=== PATIENT | male | born 1965 | race Caucasian/White ===

== ENCOUNTER 2022-04-03 17:01 | Observation (INO) | payer OTHER ==
[~2022-04-03] VITALS: Ht 193 cm; Wt 77.1 kg
[~2022-04-03 17:01] MED LIST: ANTIDEPRESSANT; CEPH500 PO; INSULANI SC; METF500; ONDA8ODT MM; SILD50TA; SULTRIDS PO
[2022-04-03 17:57] LABS: BASOPHILS PERCENT AUTO 0 % (0-2); EOSINOPHILS ABSOLUTE AUTO 0.02 K/mm3 (0.00-0.68); EOSINOPHILS PERCENT AUTO 1 % (0-6); Hematocrit 34.7 % (37.0-53.0); Hemoglobin 11.6 g/dL (13.5-17.5); IMMATURE GRAN ABSOLUTE AUTO 0.01 K/mm3 (0.00-0.10); IMMATURE GRAN PERCENT AUTO 0 % (0-1); LYMPHOCYTES PERCENT AUTO 7 % (21-46); MONOCYTES ABSOLUTE AUTO 0.58 K/mm3 (0.16-1.47); MONOCYTES PERCENT AUTO 14 % (4-13); Mean Corpuscular HGB 28.2 pg (26.0-34.0); Mean Corpuscular HGB Conc 33.4 g/dL (31.5-36.5); Mean Corpuscular Volume 84 fL (80-100); Mean Platelet Volume 11.1 fL (9.1-12.4); NEUTROPHILS ABSOLUTE AUTO 3.18 K/mm3 (1.96-9.15); NEUTROPHILS PERCENT AUTO 78 % (41-73); Platelet Count 180 K/mm3 (150-400); RDW Coefficient Variation 14.1 % (11.7-14.2); RDW Standard Deviation 43.6 fL (35.1-46.3); Red Blood Cell Count 4.11 M/mm3 (4.30-5.90); White Blood Cell Count 4.09 K/mm3 (4.00-11.30)
[2022-04-03 18:21] LABS: Albumin, Blood 3.5 g/dL (3.4-5.0); Albumin/Globulin Ratio 1.1 (0.8-1.8); Bilirubin, Total 0.4 mg/dL (0.1-1.0); Bun/Creatinine Ratio 23.6 (12.0-20.0); Calcium, Blood 8.4 mg/dL (8.5-10.1); Creatinine, Blood 0.76 mg/dL (0.60-1.20); Globulin, Blood 3.1 g/dL (2.2-4.0); Potassium, Blood 3.8 mmol/L (3.5-5.5); Total Protein, Blood 6.6 g/dL (6.4-8.2)
[2022-04-03 21:17] LABS: CHOL/HDL RATIO 2.9; Cholesterol 125 mg/dL (50-200); HDL Cholesterol 43 mg/dL (>39); LDL/HDL RATIO 1.3; Low Density Lipoprotein Chol 57 mg/dL (0-110); Triglycerides 127 mg/dL (30-160); Very Low Density Lipoprot Chol 25 mg/dL (6-32)
[2022-04-03] MEDS ORDERED: NOVOLOG FL100 UNIT/3 SC (22:49)
[2022-04-03] MEDS ORDERED: GABA300 PO (22:51)
[2022-04-03] MEDS ORDERED: MELATONIN5 M1 PO (22:52)
[2022-04-04 06:02] LABS: Hematocrit 35.2 % (37.0-53.0); Hemoglobin 11.8 g/dL (13.5-17.5)
[2022-04-04 06:17] LABS: Bun/Creatinine Ratio 31.4 (12.0-20.0); Calcium, Blood 8.4 mg/dL (8.5-10.1); Creatinine, Blood 0.7 mg/dL (0.60-1.20); Potassium, Blood 4.2 mmol/L (3.5-5.5)
--- NOTE | 2022-04-04 06:21 | NUR ---
SHIFT SUMMARY: PT IS ALERT AND ORIENTED. PT IS CALM AND COOPERATIVE WITH CARE. PT CALLS APPROPRIATELY. PT REPORTS CHRONIC PAIN IN HIS L. FOOT, MEDICATING PER EMAR. PT REPORTS SOB UPON EXERTION, SATS > 90% ON ROOM AIR. PT DENIES NAUSEA AND VOMITING. NO ACUTE CHANGES OR COMPLICATIONS OVERNIGHT. BED IN LOW POSITION, CALL LIGHT WITHIN REACH. WILL REPORT TO DAY NURSE.
--- NOTE | 2022-04-04 16:45 | NUR ---
DAYSHIFT SUMMARY Morning CBG 392, SSI given, notified MD, CBGs continued to be high all shift. This afternoon patient reported chest pain, nausea, and stated that his right arm felt funny. Called MD, new orders for telemetry, NSR. Temperature 99 this morning, and 100.6 this afternoon, patient already recevied scheduled tylenol. Patient reporting nausea, no vomiting. IV Compazine and Scopalimine patch given for nausea.
--- NOTE | 2022-04-05 07:27 | NUR ---
MULTI TOWNSHIP ASSESSOR SUMMARY Patient slept well after receiving diphenhydramine at HS. 1st dose Remdesvir received. Minimal complaints of pain with exception of Left Foot (chronic) pain which resolved with Tylenol. Patient was quite hungry. He requested 1/2 sandwiches each time we entered the room. Johnson stated he felt like he hadn't eaten in a long time and didn't understand why he was so hungry. CBG at HS was 352. increased dose of Lantus and Novolog were given as ordered.
[2022-04-05] MEDS ORDERED: ATORVASTATIN CA80 M1 PO (13:14)
[2022-04-05] MEDS ORDERED: Aspir 8181 MG PO (13:14)
[2022-04-05] MEDS ORDERED: LISI5 PO (13:15)
[2022-04-05] MEDS ORDERED: INSULANI (13:15)
[2022-04-05] MEDS ORDERED: GABA300 PO (13:15)
[2022-04-05] MEDS ORDERED: METO25 PO (13:16)
[2022-04-05] MEDS ORDERED: RANO500T PO (13:16)
--- NOTE | 2022-04-05 15:17 | NUR ---
No acute changes to patient status, ECHO resulted MD reviewed and placed discharge orders. Vitals stable, afebrile. No cardiac s/sx, patient reports feeling sick from COVID, provided education on COVID isolation and managing symptoms. Removed IV from right forearm. Patient left unit at 1430.
== END 2022-04-05 14:25 | disposition home or self-care (01) ==
LOC: ER 17:01 → MEDS 17:03 → ER 21:45 → MEDS 21:45
PROVIDERS: Emergency Medicine; Family Medicine; ADMIT Internal Medicine
DX: I25.110 Atherosclerotic heart disease of native coronary artery with unstable angina pectoris (principal); U07.1 COVID-19; E11.65 Type 2 diabetes mellitus with hyperglycemia; M79.672 Pain in left foot; R50.9 Fever, unspecified; R06.00 Dyspnea, unspecified; I50.22 Chronic systolic (congestive) heart failure; Z86.73 Personal history of transient ischemic attack (TIA), and cerebral infarction without residual deficits; Z79.4 Long term (current) use of insulin; Z79.899 Other long term (current) drug therapy
CPT/HCPCS: 36415; 71045; 80048; 80053; 80061; 82947; 83036; 83880; 84484; 85014; 85018; 85025; 93005; 93010; 96372; 96374; 96375; 99285-25; A9270; C8929; G0378; J0248; J0780; J1650; J1815; J7040; J7050; Q9957

== ENCOUNTER → 2022-08-11 | Outpatient (CLI) | payer OTHER ==
[~2022-08-11] MED LIST changes: +ASPI81CH PO; +ATOR80 PO; +ATORVASTATIN CA80 M1 PO; +Aspir 8181 MG PO; +GABA300 PO; +INSULANI; +INSULIN LI100 UNIT/6 SQ; +LISI5 PO; +MELATONIN5 M1 PO; +METO25 PO; +NOVOLOG FL100 UNIT/3 SC; +PREG100 PO; +RANO500T PO; +STEGLATRO5 MG PO; +TICA90TA PO; +TOPROL XL25 MG PO; +TRAM50 PO
[2022-08-11 09:55] LABS: BASOPHILS ABSOLUTE AUTO 0.03 K/mm3 (0.00-0.23); BASOPHILS PERCENT AUTO 1 % (0-2); EOSINOPHILS ABSOLUTE AUTO 0.09 K/mm3 (0.00-0.68); EOSINOPHILS PERCENT AUTO 2 % (0-6); Hematocrit 39.8 % (37.0-53.0); Hemoglobin 12.7 g/dL (13.5-17.5); IMMATURE GRAN ABSOLUTE AUTO 0.01 K/mm3 (0.00-0.10); IMMATURE GRAN PERCENT AUTO 0 % (0-1); LYMPHOCYTES ABSOLUTE AUTO 1.43 K/mm3 (0.84-5.20); LYMPHOCYTES PERCENT AUTO 30 % (21-46); MONOCYTES ABSOLUTE AUTO 0.53 K/mm3 (0.16-1.47); MONOCYTES PERCENT AUTO 11 % (4-13); Mean Corpuscular HGB 28.8 pg (26.0-34.0); Mean Corpuscular HGB Conc 31.9 g/dL (31.5-36.5); Mean Corpuscular Volume 90 fL (80-100); Mean Platelet Volume 10.7 fL (9.1-12.4); NEUTROPHILS ABSOLUTE AUTO 2.74 K/mm3 (1.96-9.15); NEUTROPHILS PERCENT AUTO 57 % (41-73); Platelet Count 247 K/mm3 (150-400); RDW Coefficient Variation 13.1 % (11.7-14.2); RDW Standard Deviation 43.2 fL (35.1-46.3); Red Blood Cell Count 4.41 M/mm3 (4.30-5.90); White Blood Cell Count 4.83 K/mm3 (4.00-11.30)
[2022-08-11 10:03] LABS: Bun/Creatinine Ratio 21.3 (12.0-20.0); Calcium, Blood 8.6 mg/dL (8.5-10.1); Creatinine, Blood 0.75 mg/dL (0.60-1.20); Potassium, Blood 4.3 mmol/L (3.5-5.5)
[2022-08-11 10:05] LABS: Prothrombin Time Results 10.5 Sec (9.7-11.5)
== END | disposition home or self-care (01) ==
LOC: LAB SHORT 07:40 → LAB 07:40
PROVIDERS: Internal Medicine Cardiovascular Disease
DX: I63.9 Cerebral infarction, unspecified (principal)
CPT/HCPCS: 36415; 80048; 85025; 85610

== ENCOUNTER 2022-08-12 05:42 | Day surgery (SDC) | payer OTHER ==
[~2022-08-12 05:42] MED LIST changes: -ASPI81CH PO; -ATOR80 PO; -PREG100 PO; -TICA90TA PO; -TOPROL XL25 MG PO; -TRAM50 PO
[2022-08-12] MEDS ORDERED: ATOR80 PO (06:23)
[2022-08-12] MEDS ORDERED: ASPI81CH PO (06:23)
[2022-08-12] MEDS ORDERED: GABA300 PO (06:23)
[2022-08-12] MEDS ORDERED: TOPROL XL25 MG PO (06:24)
[2022-08-12] MEDS ORDERED: LISI5 PO (06:24)
[2022-08-12] MEDS ORDERED: RANO500T PO (06:25)
[2022-08-12] MEDS ORDERED: PREG100 PO (06:25)
[2022-08-12] MEDS ORDERED: TICA90TA PO (06:25)
[2022-08-12] MEDS ORDERED: TRAM50 PO (06:26)
--- NOTE | 2022-08-12 07:21 | NUR ---
PT IS AWAKE AND VERBALIZING WELL.
--- NOTE | 2022-08-12 07:31 | NUR ---
PT AND VERBALIZED UNDERSTANDING OF WRITTEN AND VERBAL D/C INST. IV REMOVED. PT TAKEN OUT OF THE HRT CENTER VIA W/C.
== END 2022-08-12 23:03 | disposition home or self-care (01) ==
LOC: MHTC 05:42
DX: I63.9 Cerebral infarction, unspecified (principal); I25.10 Atherosclerotic heart disease of native coronary artery without angina pectoris; I11.0 Hypertensive heart disease with heart failure; I50.20 Unspecified systolic (congestive) heart failure; E11.9 Type 2 diabetes mellitus without complications
CPT/HCPCS: 93246; 93312; 93325; A9270; J2704; J7030

== ENCOUNTER 2022-12-23 19:56 | Inpatient (IN) | payer OTHER ==
[~2022-12-23] VITALS: Ht 188 cm; Wt 92.5 kg
[~2022-12-23 19:56] MED LIST changes: +ASPI81CH PO; +ATOR80 PO; +PREG100 PO; +TICA90TA PO; +TOPROL XL25 MG PO; +TRAM50 PO
[2022-12-23 20:08] LABS: BASOPHILS ABSOLUTE AUTO 0.02 K/mm3 (0.00-0.23); BASOPHILS PERCENT AUTO 0 % (0-2); EOSINOPHILS ABSOLUTE AUTO 0.03 K/mm3 (0.00-0.68); EOSINOPHILS PERCENT AUTO 0 % (0-6); Hematocrit 34.7 % (37.0-53.0); Hemoglobin 11.2 g/dL (13.5-17.5); IMMATURE GRAN ABSOLUTE AUTO 0.02 K/mm3 (0.00-0.10); IMMATURE GRAN PERCENT AUTO 0 % (0-1); LYMPHOCYTES ABSOLUTE AUTO 1.18 K/mm3 (0.84-5.20); LYMPHOCYTES PERCENT AUTO 16 % (21-46); MONOCYTES ABSOLUTE AUTO 0.81 K/mm3 (0.16-1.47); MONOCYTES PERCENT AUTO 11 % (4-13); Mean Corpuscular HGB 31.9 pg (26.0-34.0); Mean Corpuscular HGB Conc 32.3 g/dL (31.5-36.5); Mean Corpuscular Volume 99 fL (80-100); Mean Platelet Volume 9.3 fL (9.1-12.4); NEUTROPHILS ABSOLUTE AUTO 5.55 K/mm3 (1.96-9.15); NEUTROPHILS PERCENT AUTO 73 % (41-73); Platelet Count 447 K/mm3 (150-400); RDW Coefficient Variation 14.5 % (11.7-14.2); RDW Standard Deviation 52.8 fL (35.1-46.3); Red Blood Cell Count 3.51 M/mm3 (4.30-5.90); White Blood Cell Count 7.61 K/mm3 (4.00-11.30)
[2022-12-23 20:24] LABS: Alanine Aminotransfer (ALT/SGP 14 U/L (12-78); Albumin, Blood 3.1 g/dL (3.4-5.0); Albumin/Globulin Ratio 0.8 (0.8-1.8); Alk Phos 107 U/L (50-136); Anion Gap 5 mmol/L (6-16); Aspartate Aminotrans (AST/SGOT 11 U/L (12-37); Bilirubin, Total 0.2 mg/dL (0.1-1.0); Blood Urea Nitrogen 16 mg/dL (8-24); Bun/Creatinine Ratio 23.2 (12.0-20.0); CO2, Blood 23 mmol/L (21-32); Calcium, Blood 8.3 mg/dL (8.5-10.1); Chloride, Blood 111 mmol/L (98-108); Creatinine, Blood 0.69 mg/dL (0.60-1.20); Ethanol (Alcohol), Blood, Med <3 mg/dL; Globulin, Blood 3.9 g/dL (2.2-4.0); Glomerular Filtration Rate 108 (60-); Glucose, Blood 59 mg/dL (70-99); Potassium, Blood 3.4 mmol/L (3.5-5.5); Sodium, Blood 139 mmol/L (136-145)
[2022-12-23 21:06] LABS: U Amphetamine Screen Not Detected; U Barbituate Screen Not Detected; U Benzodiazapine Screen Not Detected; U Buprenorphine Screen Not Detected; U Cannabinoids Screen Not Detected; U Cocaine Screen Not Detected; U Methadone Screen Not Detected; U Methamphetamine Screen Not Detected; U Opiates Screen Not Detected; U Oxycodone Screen Not Detected; U Phencyclidine Screen Not Detected; U Propoxyphene Screen Not Detected
[2022-12-23] MEDS ORDERED: SPIRONOLACTONE25 MG PO (21:30)
[2022-12-24 00:05] VITALS: BP 117/80
[2022-12-24 03:03] VITALS: BP 127/86
[2022-12-24 03:53] LABS: BASOPHILS ABSOLUTE AUTO 0.01 K/mm3 (0.00-0.23); BASOPHILS PERCENT AUTO 0 % (0-2); EOSINOPHILS ABSOLUTE AUTO 0.01 K/mm3 (0.00-0.68); EOSINOPHILS PERCENT AUTO 0 % (0-6); Hematocrit 33.5 % (37.0-53.0); Hemoglobin 10.8 g/dL (13.5-17.5); IMMATURE GRAN ABSOLUTE AUTO 0.01 K/mm3 (0.00-0.10); IMMATURE GRAN PERCENT AUTO 0 % (0-1); LYMPHOCYTES ABSOLUTE AUTO 0.78 K/mm3 (0.84-5.20); LYMPHOCYTES PERCENT AUTO 14 % (21-46); MONOCYTES ABSOLUTE AUTO 0.43 K/mm3 (0.16-1.47); MONOCYTES PERCENT AUTO 8 % (4-13); Mean Corpuscular HGB Conc 32.2 g/dL (31.5-36.5); Mean Corpuscular Volume 99 fL (80-100); Mean Platelet Volume 9.6 fL (9.1-12.4); NEUTROPHILS ABSOLUTE AUTO 4.51 K/mm3 (1.96-9.15); NEUTROPHILS PERCENT AUTO 78 % (41-73); Platelet Count 365 K/mm3 (150-400); RDW Coefficient Variation 14.4 % (11.7-14.2); RDW Standard Deviation 52.7 fL (35.1-46.3); Red Blood Cell Count 3.37 M/mm3 (4.30-5.90); White Blood Cell Count 5.75 K/mm3 (4.00-11.30)
[2022-12-24 04:12] LABS: Albumin, Blood 2.7 g/dL (3.4-5.0); Albumin/Globulin Ratio 0.8 (0.8-1.8); Bilirubin, Total 0.2 mg/dL (0.1-1.0); Bun/Creatinine Ratio 24.3 (12.0-20.0); Calcium, Blood 7.9 mg/dL (8.5-10.1); Creatinine, Blood 0.58 mg/dL (0.60-1.20); Globulin, Blood 3.6 g/dL (2.2-4.0); Potassium, Blood 3.8 mmol/L (3.5-5.5); Total Protein, Blood 6.3 g/dL (6.4-8.2)
[2022-12-24 07:00] VITALS: BP 129/85
[2022-12-24 11:21] VITALS: BP 131/76
[2022-12-24 15:25] VITALS: BP 118/84
[2022-12-24 17:05] LABS: Source, Urine Clean Catch
[2022-12-24 17:08] LABS: Appearance, Urine Hazy (Clear); Bilirubin, Urine Neg (Neg); Blood, Urine Neg (Neg); Color, Urine Yellow (P-Yellow); Glucose Qualitative, Urine 4+ (Neg); Ketones, Urine Neg (Neg); Leukocyte Esterase, Urine 1+ (Neg); Nitrite, Urine Pos (Neg); Protein, Urine Neg (Neg); Urobilinogen, Urine NORM (Normal)
[2022-12-24 17:14] LABS: Red Blood Cells, Urine 0-2 /hpf (0-2)
[2022-12-24 17:15] LABS: Bacteria Many /hpf; Squamous Epithelial Cells Not Seen /hpf (Few)
[2022-12-24 20:06] VITALS: BP 120/86
[2022-12-25] VITALS (7 sets, daily range): BP systolic 119–138; BP diastolic 79–97
[2022-12-25 08:47] LABS: Albumin, Blood 3.1 g/dL (3.4-5.0); Anion Gap 2 mmol/L (6-16); Blood Urea Nitrogen 18 mg/dL (8-24); Bun/Creatinine Ratio 25.3 (12.0-20.0); CO2, Blood 29 mmol/L (21-32); Calcium, Blood 8.3 mg/dL (8.5-10.1); Chloride, Blood 106 mmol/L (98-108); Creatinine, Blood 0.71 mg/dL (0.60-1.20); Glomerular Filtration Rate 107 (60-); Glucose, Blood 166 mg/dL (70-99); Magnesium, Blood 2.2 mg/dL (1.6-2.4); Phosphorus, Blood 3.5 mg/dL (2.5-4.9); Sodium, Blood 137 mmol/L (136-145)
[2022-12-26 04:16] VITALS: BP 112/75
[2022-12-26 09:33] VITALS: BP 115/74
[2022-12-26 11:41] VITALS: BP 123/83
[2022-12-26 15:25] VITALS: BP 120/81
[2022-12-26 20:47] VITALS: BP 117/80
[2022-12-26 23:30] LABS: Glucose, Blood 543 mg/dL (70-99)
[2022-12-27 08:03] VITALS: BP 112/75
[2022-12-27 15:16] VITALS: BP 113/84
[2022-12-27 19:44] VITALS: BP 136/85
[2022-12-28 05:27] VITALS: BP 98/65
[2022-12-28 07:25] VITALS: BP 121/83
[2022-12-28 17:36] VITALS: BP 128/86
[2022-12-28 19:49] VITALS: BP 120/85
[2022-12-29 02:39] VITALS: BP 95/62
[2022-12-29 08:18] VITALS: BP 117/78
[2022-12-29 09:00] VITALS: BP 146/79
[2022-12-29 16:25] VITALS: BP 139/90
[2022-12-29 21:27] VITALS: BP 104/74
[2022-12-30 05:42] LABS: Bun/Creatinine Ratio 41.7 (12.0-20.0); Calcium, Blood 9.2 mg/dL (8.5-10.1); Creatinine, Blood 0.62 mg/dL (0.60-1.20); Potassium, Blood 4.3 mmol/L (3.5-5.5)
[2022-12-30 08:08] VITALS: BP 124/88
[2022-12-30 15:39] VITALS: BP 127/87
[2022-12-30 16:47] VITALS: BP 154/94
[2022-12-30 20:04] VITALS: BP 119/86
[2022-12-31 02:52] VITALS: BP 105/77
[2022-12-31 05:03] LABS: BASOPHILS ABSOLUTE AUTO 0.02 K/mm3 (0.00-0.23); BASOPHILS PERCENT AUTO 0 % (0-2); EOSINOPHILS ABSOLUTE AUTO 0.05 K/mm3 (0.00-0.68); EOSINOPHILS PERCENT AUTO 1 % (0-6); Hematocrit 33.9 % (37.0-53.0); Hemoglobin 11.1 g/dL (13.5-17.5); IMMATURE GRAN ABSOLUTE AUTO 0.01 K/mm3 (0.00-0.10); IMMATURE GRAN PERCENT AUTO 0 % (0-1); LYMPHOCYTES ABSOLUTE AUTO 1.49 K/mm3 (0.84-5.20); LYMPHOCYTES PERCENT AUTO 31 % (21-46); MONOCYTES ABSOLUTE AUTO 0.63 K/mm3 (0.16-1.47); MONOCYTES PERCENT AUTO 13 % (4-13); Mean Corpuscular HGB 32.2 pg (26.0-34.0); Mean Corpuscular HGB Conc 32.7 g/dL (31.5-36.5); Mean Corpuscular Volume 98 fL (80-100); Mean Platelet Volume 9.7 fL (9.1-12.4); NEUTROPHILS ABSOLUTE AUTO 2.69 K/mm3 (1.96-9.15); NEUTROPHILS PERCENT AUTO 55 % (41-73); Platelet Count 285 K/mm3 (150-400); RDW Coefficient Variation 13.2 % (11.7-14.2); RDW Standard Deviation 47.7 fL (35.1-46.3); Red Blood Cell Count 3.45 M/mm3 (4.30-5.90); White Blood Cell Count 4.89 K/mm3 (4.00-11.30)
[2022-12-31 05:41] LABS: Calcium, Blood 9.2 mg/dL (8.5-10.1); Creatinine, Blood 0.69 mg/dL (0.60-1.20); Potassium, Blood 4.4 mmol/L (3.5-5.5)
[2022-12-31 07:23] VITALS: BP 132/89
[2022-12-31 15:11] VITALS: BP 119/92
[2022-12-31 20:17] VITALS: BP 110/75
[2023-01-01 03:45] VITALS: BP 90/60
[2023-01-01 05:47] LABS: Calcium, Blood 8.9 mg/dL (8.5-10.1); Creatinine, Blood 0.78 mg/dL (0.60-1.20); Potassium, Blood 4.8 mmol/L (3.5-5.5)
[2023-01-01 07:21] VITALS: BP 114/83
[2023-01-01 15:28] VITALS: BP 125/85
[2023-01-01] MEDS ORDERED: Seroquel Xr50 MG PO (17:17)
[2023-01-01] MEDS ORDERED: ALDACTONE25 MG (17:18)
== END 2023-01-01 17:54 | disposition home or self-care (01) | DRG 637 ==
LOC: ER 19:56 → PCU 19:57 → MEDS 12-25 15:51 → PCU 12-25 15:55 → MEDS 12-26 17:01
PROVIDERS: Emergency Medicine; Family Medicine; Internal Medicine; ADMIT Internal Medicine
DX: E10.649 Type 1 diabetes mellitus with hypoglycemia without coma (principal); G93.41 Metabolic encephalopathy; I50.22 Chronic systolic (congestive) heart failure; T38.3X5A Adverse effect of insulin and oral hypoglycemic [antidiabetic] drugs, initial encounter; M25.561 Pain in right knee; I25.10 Atherosclerotic heart disease of native coronary artery without angina pectoris; Z66 Do not resuscitate; Z51.5 Encounter for palliative care; E10.42 Type 1 diabetes mellitus with diabetic polyneuropathy; I25.5 Ischemic cardiomyopathy; E78.5 Hyperlipidemia, unspecified; G40.909 Epilepsy, unspecified, not intractable, without status epilepticus; I11.0 Hypertensive heart disease with heart failure; M25.461 Effusion, right knee; F01.B0 Vascular dementia, moderate, without behavioral disturbance, psychotic disturbance, mood disturbance, and anxiety; B95.61 Methicillin susceptible Staphylococcus aureus infection as the cause of diseases classified elsewhere; W18.30XA Fall on same level, unspecified, initial encounter; Z91.018 Allergy to other foods; Z79.82 Long term (current) use of aspirin; Z79.02 Long term (current) use of antithrombotics/antiplatelets; Z79.811 Long term (current) use of aromatase inhibitors; Z86.73 Personal history of transient ischemic attack (TIA), and cerebral infarction without residual deficits; Z79.4 Long term (current) use of insulin; Z95.5 Presence of coronary angioplasty implant and graft; Z79.899 Other long term (current) drug therapy; Z79.891 Long term (current) use of opiate analgesic; I25.2 Old myocardial infarction; Z89.422 Acquired absence of other left toe(s); Z98.84 Bariatric surgery status; Z87.891 Personal history of nicotine dependence
CPT/HCPCS: 36415; 51702; 70450; 73562-RT; 80048; 80053; 80069; 81001; 82947; 83735; 85025; 87077; 87086; 87147; 87186; 93005; 93010; 94760; 96361; 96372; 96374-59; 96375-59; 96376; 97129; 97165; 99285-25; A9270; G0378; G0480; J0696; J1650; J1815; J7070; J7131; J7799

== ENCOUNTER 2023-02-23 17:08 | Emergency (ER) | payer OTHER ==
[~2023-02-23] VITALS: Ht 193 cm; Wt 81.7 kg
[~2023-02-23 17:08] MED LIST changes: +ALDACTONE25 MG; +SPIRONOLACTONE25 MG PO; +Seroquel Xr50 MG PO
[2023-02-23 18:50] LABS: Magnesium, Blood 2.3 mg/dL (1.6-2.4)
[2023-02-23 18:51] LABS: Bun/Creatinine Ratio 20.3 (12.0-20.0); Calcium, Blood 8.3 mg/dL (8.5-10.1); Creatinine, Blood 0.64 mg/dL (0.60-1.20); Potassium, Blood 3.8 mmol/L (3.5-5.5)
[2023-02-23 21:09] VITALS: BP 135/93
== END 2023-02-23 21:15 | disposition home or self-care (01) ==
LOC: ER 17:08
PROVIDERS: Student in an Organized Health Care Education/Training Program
DX: E11.649 Type 2 diabetes mellitus with hypoglycemia without coma (principal); E11.43 Type 2 diabetes mellitus with diabetic autonomic (poly)neuropathy; K31.84 Gastroparesis; T38.3X5A Adverse effect of insulin and oral hypoglycemic [antidiabetic] drugs, initial encounter; Z91.018 Allergy to other foods; Z79.899 Other long term (current) drug therapy; Z79.4 Long term (current) use of insulin; Z79.82 Long term (current) use of aspirin; E11.9 Type 2 diabetes mellitus without complications; I25.2 Old myocardial infarction
CPT/HCPCS: 80048; 82947; 83735; 96372-59; 96374; 99285-25; A9270; J1610

== ENCOUNTER 2023-03-16 05:42 | Emergency (ER) | payer OTHER ==
[~2023-03-16] VITALS: Ht 193 cm; Wt 90.7 kg
[~2023-03-16 05:42] MED LIST changes: +AMOCLA875 PO; +GUAI600T33 PO
[2023-03-16 07:46] LABS: BASOPHILS ABSOLUTE AUTO 0.03 K/mm3 (0.00-0.23); BASOPHILS PERCENT AUTO 1 % (0-2); EOSINOPHILS ABSOLUTE AUTO 0.04 K/mm3 (0.00-0.68); EOSINOPHILS PERCENT AUTO 1 % (0-6); Hematocrit 32.8 % (37.0-53.0); Hemoglobin 10.2 g/dL (13.5-17.5); IMMATURE GRAN ABSOLUTE AUTO 0.06 K/mm3 (0.00-0.10); IMMATURE GRAN PERCENT AUTO 2 % (0-1); LYMPHOCYTES ABSOLUTE AUTO 0.94 K/mm3 (0.84-5.20); LYMPHOCYTES PERCENT AUTO 24 % (21-46); MONOCYTES ABSOLUTE AUTO 0.32 K/mm3 (0.16-1.47); MONOCYTES PERCENT AUTO 8 % (4-13); Mean Corpuscular HGB 30.4 pg (26.0-34.0); Mean Corpuscular HGB Conc 31.1 g/dL (31.5-36.5); Mean Corpuscular Volume 98 fL (80-100); Mean Platelet Volume 10.4 fL (9.1-12.4); NEUTROPHILS ABSOLUTE AUTO 2.57 K/mm3 (1.96-9.15); NEUTROPHILS PERCENT AUTO 65 % (41-73); Platelet Count 336 K/mm3 (150-400); RDW Coefficient Variation 15.1 % (11.7-14.2); RDW Standard Deviation 54.4 fL (35.1-46.3); Red Blood Cell Count 3.35 M/mm3 (4.30-5.90); White Blood Cell Count 3.96 K/mm3 (4.00-11.30)
[2023-03-16 11:00] LABS: Albumin, Blood 2.5 g/dL (3.4-5.0); Albumin/Globulin Ratio 0.6 (0.8-1.8); Bilirubin, Total 0.1 mg/dL (0.1-1.0); Bun/Creatinine Ratio 16.8 (12.0-20.0); Calcium, Blood 7.3 mg/dL (8.5-10.1); Creatinine, Blood 0.95 mg/dL (0.60-1.20); Globulin, Blood 3.9 g/dL (2.2-4.0); Potassium, Blood 3.4 mmol/L (3.5-5.5); Total Protein, Blood 6.4 g/dL (6.4-8.2)
[2023-03-16 11:40] LABS: Calcium, Ionized (POC) 1.06 mmol/L (1.10-1.46); Chloride (POC) 110 mmol/L (98-108); Creatinine (POC) 0.7 mg/dL (0.8-1.3); Glucose (ISTAT POC) 109 mg/dL (70-99); Hemoglobin (POC) 11.9 g/dL (13.5-17.5); Potassium (POC) 4.1 mmol/L (3.5-5.5); Sodium (POC) 142 mmol/L (135-148); Total CO2 (POC) 19 mmol/L (21-32)
[2023-03-16] MEDS ORDERED: CEPH500 PO (12:22)
[2023-03-16 12:33] VITALS: BP 123/85
== END 2023-03-16 12:38 | disposition home or self-care (01) ==
LOC: ER 05:42
PROVIDERS: Family Medicine
DX: E11.649 Type 2 diabetes mellitus with hypoglycemia without coma (principal); E11.621 Type 2 diabetes mellitus with foot ulcer; R11.0 Nausea; R07.89 Other chest pain; I25.2 Old myocardial infarction; I10 Essential (primary) hypertension; E78.5 Hyperlipidemia, unspecified; E11.9 Type 2 diabetes mellitus without complications; Z86.73 Personal history of transient ischemic attack (TIA), and cerebral infarction without residual deficits; Z91.048 Other nonmedicinal substance allergy status; Z91.018 Allergy to other foods; Z79.82 Long term (current) use of aspirin; Z79.4 Long term (current) use of insulin; Z79.899 Other long term (current) drug therapy
CPT/HCPCS: 80047; 80053; 82947; 84484; 85014; 85025; 93005; 93010; 99285-25; A9270

== ENCOUNTER → 2023-03-20 | Outpatient (CLI) | payer OTHER ==
[~2023-03-20] MED LIST changes: +ENTRESTO 24 MG1 EAC2 PO; +Keppra PO; +LEVE500 PO; +RANEXA1000 M4 PO
[2023-03-20 16:33] LABS: Magnesium, Blood 2.3 mg/dL (1.6-2.4)
[2023-03-20 16:43] LABS: Albumin, Blood 2.8 g/dL (3.4-5.0); Albumin/Globulin Ratio 0.7 (0.8-1.8); Bilirubin, Total 0.2 mg/dL (0.1-1.0); Bun/Creatinine Ratio 15.2 (12.0-20.0); Calcium, Blood 7.8 mg/dL (8.5-10.1); Creatinine, Blood 0.66 mg/dL (0.60-1.20); Potassium, Blood 4.5 mmol/L (3.5-5.5); Thyroid Stimulating Hormone 0.494 uIU/mL (0.360-4.800); Total Protein, Blood 6.8 g/dL (6.4-8.2)
== END | disposition home or self-care (01) ==
LOC: LAB SHORT 13:19 → LAB 13:19
PROVIDERS: Internal Medicine Cardiovascular Disease
DX: I47.20 Ventricular tachycardia, unspecified (principal); R06.02 Shortness of breath
CPT/HCPCS: 80053; 83735; 83880; 84443

== ENCOUNTER 2023-03-21 07:56 | Inpatient (IN) | payer OTHER ==
[2023-03-21] VITALS (28 sets, daily range): BP systolic 82–109; BP diastolic 56–82
[~2023-03-21] VITALS: Ht 190.5 cm; Wt 85.1 kg
[~2023-03-21 07:56] MED LIST changes: -ENTRESTO 24 MG1 EAC2 PO; -Keppra PO; -LEVE500 PO; -RANEXA1000 M4 PO
[2023-03-21 09:32] LABS: BASOPHILS ABSOLUTE AUTO 0.01 K/mm3 (0.00-0.23); BASOPHILS PERCENT AUTO 0 % (0-2); EOSINOPHILS ABSOLUTE AUTO 0.01 K/mm3 (0.00-0.68); EOSINOPHILS PERCENT AUTO 0 % (0-6); Hematocrit 37.9 % (37.0-53.0); Hemoglobin 11.6 g/dL (13.5-17.5); IMMATURE GRAN ABSOLUTE AUTO 0.02 K/mm3 (0.00-0.10); IMMATURE GRAN PERCENT AUTO 0 % (0-1); LYMPHOCYTES PERCENT AUTO 13 % (21-46); MONOCYTES PERCENT AUTO 7 % (4-13); Mean Corpuscular HGB 30.1 pg (26.0-34.0); Mean Corpuscular HGB Conc 30.6 g/dL (31.5-36.5); Mean Corpuscular Volume 98 fL (80-100); NEUTROPHILS PERCENT AUTO 79 % (41-73); Platelet Count 323 K/mm3 (150-400); RDW Coefficient Variation 15.2 % (11.7-14.2); RDW Standard Deviation 55.5 fL (35.1-46.3); Red Blood Cell Count 3.85 M/mm3 (4.30-5.90); White Blood Cell Count 5.44 K/mm3 (4.00-11.30)
[2023-03-21 11:27] LABS: Albumin, Blood 2.9 g/dL (3.4-5.0); Albumin/Globulin Ratio 0.6 (0.8-1.8); Bilirubin, Total 0.2 mg/dL (0.1-1.0); Bun/Creatinine Ratio 17.8 (12.0-20.0); Calcium, Blood 8.2 mg/dL (8.5-10.1); Creatinine, Blood 0.73 mg/dL (0.60-1.20); Globulin, Blood 4.7 g/dL (2.2-4.0); Total Protein, Blood 7.6 g/dL (6.4-8.2)
[2023-03-21 12:18] LABS: Base Excess Venous -4.9 mmol/L; Bicarbonate Venous 19.2 mmol/L (24.0-30.0); PCO2 Venous 52.8 mmHg (38-42)
[2023-03-21 12:19] LABS: pH Blood Venous 7.24 (7.34-7.37)
[2023-03-21 12:41] LABS: Source, Urine Clean Catch
[2023-03-21 12:59] LABS: Appearance, Urine Clear (Clear); Bilirubin, Urine Neg (Neg); Blood, Urine Neg (Neg); Color, Urine Yellow (P-Yellow); Glucose Qualitative, Urine Neg (Neg); Ketones, Urine Neg (Neg); Leukocyte Esterase, Urine Neg (Neg); Nitrite, Urine Neg (Neg); Protein, Urine 1+ (Neg); Specific Gravity, Urine 1.015 (1.003-1.022); Urobilinogen, Urine NORM (Normal)
--- NOTE | 2023-03-21 16:14 | NUR ---
ADMIT... PT ARRIVED TO THE UNIT AT 1445. PT IS INTUBATED AND SEDATED WITH PROPOFOL AT 70MCG/KG, PT IS STILL PULLING ON THE RESTRAINTS AND BITING THE ET TUBE AT TIMES. BP IS SOFT BUT STABLE WITH MAPS >65. 1+ EDEMA NOTED TO HIS BLE ALONG WITH MANY WOUNDS TO HIS BLE AND ACROSS HIS BODY(SEE PICTURES). HE IS IN SR IN THE 80'S. ET TUBE IS 8.5 AND 23 AT THE TEETH. VENT SETTINGS ARE AC/VC:20/450/8/80% WITH O2 SATS>90% L/S COARSE T/O. OG TUBE IS CLAMPED AT THIS TIME. VEGA IS PATENT AND DRAINING TO GRAVITY. DR. GONZALEZ AT THE BEDSIDE WITH THE FAMILY, PER THE FAMILY THEY ARE THINKING OF MAKING HIM COMFORT CARE. WILL CONTINUE TO MONITOR.
--- NOTE | 2023-03-21 17:08 | NUR ---
Upon being called in on a call-back from RN Tailor'S Aide Tanmay, I visited with the patient's family. PAtient and family are known to me from earlier hospital stays. Patient's Spouse, Pamela and son Palmer are bedside. We discuss their intense emotions, the family unit complications and a life review of the patient. Both Pamela and Palmer are tearful at times but appropriately given their story. We explore their thoughts about extubation and the many layers connected to the medical and personal issues surrounding the patient. I am asked to pray for the patient which I gladly provide and as well as therapeutic listening, anticipatory grief support and a calming presence. Pamela and Palmer responded well and showed signs of being comforted.
--- NOTE | 2023-03-21 17:57 | NUR ---
SHIFT SUMMARY/COMFORT CARE... AT 1751 THE PT WAS EXTUBATED TO COMFORT CARE PER THE FAMILY. PT WAS MEDICATED PER EMAR PRIOR TO EXTUBATION. FAMILY AT THE BEDSIDE AFTER THE PT WAS EXTUBATED. DR. GONZALEZ NOTIFIED OF THE FAMILYS DECISION. COMFORT CARE ORDERS IN PLACE. WILL CONTINUE TO MONITOR UNTIL REPORT IS GIVENT ONCOMING RN.
--- NOTE | 2023-03-22 06:13 | NUR ---
NOC SHIFT SUMMARY: PT ON COMFORT CARE. AT BEDSIDE UNTIL 0300. A/O FOR SEVERAL HOURS, HUGE APPETITE, SEVERAL SNACKS GIVEN. PT TOLERATING PO INTAKE WELL. PER SPOUSE, THIS IS NORMAL BEHAVIOR FOR PT. C/O PAIN 8/10, MEDICATED WITH LITTLE RELIEF. PT REQUIRED SEVERAL DOSES OF PAIN MEDICATION. ANXIETY DUE TO PAIN AND RESTLESSNESS, REQUIRED ATIVAN AND HALDOL TO CONTROL ANXIETY. FINALLY ABLE TO SLEEP AT 0300 WITH MINIMAL EPISODES OF RESTLESSNESS. OFFERED REPOSITIONING, PT DECLINED. PROBLEMS WITH TEMPERATURE REGULATION GOING FROM HOT TO COLD, ALTERNATED BETWEEN FAN AND BLANKETS. VEGA IN PLACE FOR PT COMFORT HE GETS VERY RESTLESS AND ANXIOUS WHEN DISTURBED TO REPOSITION. SKIN WITH OPEN AREAS, UNCHANGED FROM PREVIOUS ASSESSMENT, C/O MILD ITCHING AT TIMES. PT AND SPOUSE EDUCATED ON IGNITION SOURCES AND HIGHER RISKS WITH O2 USE. PT DOES NOT SMOKE AND NO IGNITION SOURCES IDENTIFIED IN ROOM. RN TO CONTINUE TO MONITOR.
[2023-03-22] MEDS ORDERED: Keppra PO (09:38)
[2023-03-22] MEDS ORDERED: RANEXA1000 M4 PO (09:38)
[2023-03-22] MEDS ORDERED: ENTRESTO 24 MG1 EAC2 PO (09:39)
[2023-03-22 10:04] LABS: BASOPHILS ABSOLUTE AUTO 0.02 K/mm3 (0.00-0.23); BASOPHILS PERCENT AUTO 0 % (0-2); EOSINOPHILS ABSOLUTE AUTO 0.04 K/mm3 (0.00-0.68); EOSINOPHILS PERCENT AUTO 0 % (0-6); Hematocrit 30.2 % (37.0-53.0); Hemoglobin 9.5 g/dL (13.5-17.5); IMMATURE GRAN ABSOLUTE AUTO 0.01 K/mm3 (0.00-0.10); IMMATURE GRAN PERCENT AUTO 0 % (0-1); LYMPHOCYTES ABSOLUTE AUTO 0.71 K/mm3 (0.84-5.20); LYMPHOCYTES PERCENT AUTO 7 % (21-46); MONOCYTES ABSOLUTE AUTO 0.54 K/mm3 (0.16-1.47); MONOCYTES PERCENT AUTO 6 % (4-13); Mean Corpuscular HGB 29.9 pg (26.0-34.0); Mean Corpuscular HGB Conc 31.5 g/dL (31.5-36.5); Mean Corpuscular Volume 95 fL (80-100); Mean Platelet Volume 10.4 fL (9.1-12.4); NEUTROPHILS ABSOLUTE AUTO 8.51 K/mm3 (1.96-9.15); NEUTROPHILS PERCENT AUTO 87 % (41-73); Platelet Count 222 K/mm3 (150-400); RDW Coefficient Variation 15.1 % (11.7-14.2); RDW Standard Deviation 53.1 fL (35.1-46.3); Red Blood Cell Count 3.18 M/mm3 (4.30-5.90); White Blood Cell Count 9.83 K/mm3 (4.00-11.30)
[2023-03-22 10:25] LABS: Albumin, Blood 2.1 g/dL (3.4-5.0); Albumin/Globulin Ratio 0.6 (0.8-1.8); Bilirubin, Total 0.4 mg/dL (0.1-1.0); Bun/Creatinine Ratio 32.1 (12.0-20.0); Calcium, Blood 7.6 mg/dL (8.5-10.1); Creatinine, Blood 0.62 mg/dL (0.60-1.20); Globulin, Blood 3.6 g/dL (2.2-4.0); Potassium, Blood 4.7 mmol/L (3.5-5.5); Total Protein, Blood 5.7 g/dL (6.4-8.2)
[2023-03-22 11:15] VITALS: BP 118/77
--- NOTE | 2023-03-22 11:30 | NUR ---
APROX 1105 PT TRANSFERED FROM ICU TO PCU09. PT AWAKENS TO STIMULI THEN QUICKLY FALLS BACK TO SLEEP. PT ORIENTED X 3, CONFUSED ABOUT SITUATION AT TIMES. BED ALARM ON FOR SAFETY. CALL LIGHT IN REACH. SR, PT DINES CHEST PAIN OR PRESSURE. BREATH SOUNDS COARSE IN BASES BILAT, 3L 02 VIA NC. ABD SOFT, NONTENDER, ACTIVE BT X 4. VEGA CATHETER DRAINING DARK YELLOW URINE TO GRAVITY. NO S/SX OF IRRTATION OR INFECTION. SKIN WITH MANY SMALL TO LRG UNHEALED ULCERS AND BILSTERS. CALL, FOLLOW COMMANDS, UNCOORDINATED MOVEMENTS. NO NEEDS IDENTIFIED AT THIS TIME, WILL CONTINUE TO MONITOR.
--- NOTE | 2023-03-22 18:09 | NUR ---
PT MORE AWAKE THIS EVENING. SITTING UP AT THE SIDE OF THE BED. PT REMAINS PLEASANTLY CONFUSED BUT COOPERATIVE. BLOOD SUGAR IS BETTER CONTROLLED. PT IS ABLE TO USE CALL LIGHT FOR NEEDS AT TIMES, BED ALARM ON FOR SAFETY. ALERT AND FOLLOWING COMMANDS, BUT QUICKLY FORGETS INSTRUCTIONS. NO ACUTE CHANGES SINCE ARRIVAL TO UNIT. WILL CONTINUE TO MONITOR AND GIVE REPORT TO NOC SHIFT RN.
[2023-03-22 19:39] VITALS: BP 146/91
[2023-03-22 23:04] VITALS: BP 101/73
[2023-03-23] VITALS (12 sets, daily range): BP systolic 88–116; BP diastolic 54–78
[2023-03-23 04:06] LABS: BASOPHILS ABSOLUTE AUTO 0.02 K/mm3 (0.00-0.23); BASOPHILS PERCENT AUTO 0 % (0-2); EOSINOPHILS ABSOLUTE AUTO 0.06 K/mm3 (0.00-0.68); EOSINOPHILS PERCENT AUTO 1 % (0-6); Hematocrit 27.6 % (37.0-53.0); Hemoglobin 8.7 g/dL (13.5-17.5); IMMATURE GRAN ABSOLUTE AUTO 0.02 K/mm3 (0.00-0.10); IMMATURE GRAN PERCENT AUTO 0 % (0-1); LYMPHOCYTES PERCENT AUTO 12 % (21-46); MONOCYTES ABSOLUTE AUTO 0.61 K/mm3 (0.16-1.47); MONOCYTES PERCENT AUTO 7 % (4-13); Mean Corpuscular HGB 29.8 pg (26.0-34.0); Mean Corpuscular HGB Conc 31.5 g/dL (31.5-36.5); Mean Corpuscular Volume 95 fL (80-100); Mean Platelet Volume 10.2 fL (9.1-12.4); NEUTROPHILS ABSOLUTE AUTO 7.33 K/mm3 (1.96-9.15); NEUTROPHILS PERCENT AUTO 80 % (41-73); Platelet Count 209 K/mm3 (150-400); RDW Coefficient Variation 14.9 % (11.7-14.2); Red Blood Cell Count 2.92 M/mm3 (4.30-5.90); White Blood Cell Count 9.14 K/mm3 (4.00-11.30)
[2023-03-23 04:26] LABS: Albumin/Globulin Ratio 0.6 (0.8-1.8); Bilirubin, Total 0.4 mg/dL (0.1-1.0); Calcium, Blood 7.8 mg/dL (8.5-10.1); Creatinine, Blood 0.63 mg/dL (0.60-1.20); Globulin, Blood 3.5 g/dL (2.2-4.0); Total Protein, Blood 5.5 g/dL (6.4-8.2)
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
--- NOTE | 2023-03-23 13:30 | NUR ---
Spiritual care visit conducted. Patient is lying in bed and sleeping. Spouse, Daphnie tells me about the events that have happened since his admit including a remarkable improvement in his condition. Patient begins waking up and welcomes prayer. I provide prayer for the patient. We then discuss filling out a POLST and Advance Directive. Palliative Care RN arrives in the patient's rm as we are having the conversation. Pauline eventually steps out of the rm with Roddy and they fill out the above mentioned forms. Patient is fully awake by then and without any prompting states that he wants to shortly because he does not want to suffer like his father did the last months of his life. He also states that, for him, it is not about the amount of days but about living fully with the days he has left. He states that he does not want to be brought back to the hospital and that he is at peace with God and ready to go. He continues speaking about his father's and the high caliber of person that he was. The patient states that he wishes to do better with his treatment of those around him. I provide another prayer for strength and kindness in how he lives moving forward. Patient voices his appreciation for the spiritual care visit.
--- NOTE | 2023-03-23 14:52 | NUR ---
PT ARRIVED TO [place] [id number] @1450 VIA WHEELCHAIR. PT ABLE TO TRANSFER INDEPENDENTLY TO BED. BED ALARM SET DUE TO FALL THIS AM. IV PATENT, FLUSHED, AND SALINE LOCKED. PT ASKING FOR SNACKS UPON ARRIVAL. INSULIN PLACED IN LOCKBOX. NO COMPLAINTS AT THIS TIME.
--- NOTE | 2023-03-23 16:24 | NUR ---
PT TRANSFERRED TO 348 REPORT GIVEN TO LYRIC KELLEY. AT THE BEDSIDE AWARE. ALL BELONGINGS SENT WITH THE PT. NO ACUTE CHANGE SINCE PT FELL OUT OF BED, TAB AND BED ALARM REMAINED IN PLACE. PALLIATIVE CARE NURSE WAS ABLE TO TALK TO THE PLAN TO PLACE PT ON COMFORT CARE MEASURES ONLY AND SEND HOME WITH HOSPICE SERVICES.
--- NOTE | 2023-03-23 17:46 | NUR ---
Pt's is POA, and both pt and his are in agreement, no further invasive treatment: DNR with comfort care only. POLST is filled out and signed by both physician and POA. Pt's mother is also a caregiver for this pt and she is also in agreement with code status, and this is a good support for pt and his . [facility] is reviewing pt's chart, will admit if indicated. He has several co-morbidities, and if he qualifies, he will return home with family to live out his days with quality and dignity.
--- NOTE | 2023-03-24 05:09 | NUR ---
SHIFT SUMMARY PT IN PAIN THIS SHIFT, C/O R HIP AND LEG PAIN THAT IS INTERMITTENT BUT THROBBING AND SEVERE WHEN PRESENT. PT VERY CONVERSATIVE AND AAOX3, HOWEVER HIS THOUGHTS ARE VERY FLIGHTY, NOT RELATING TO TOPIC THAT WAS BEING DISCUSSED. CONTINUES TO HAVE STORIES THAT ARE UNABLE TO FOLLOW AND DO NOT MAKE SENSE. PT FREQUENTLY ASKING FOR FOOD, BG 311, SUGAR FREE SNACKS PROVIDED TO PATIENT. PT STILL CONTINUED TO REQUEST FOOD. PT UNABLE TO SLEEP STILL AROUND 0230, TOO LATE TO REQUEST SLEEPING MEDICATION. MEDICATED PT FOR PAIN THROUGHOUT SHIFT. PRN TRAMADOL GIVEN X2, AND PRN DILAUDID 2MG GIVEN X3. PT IV LEAKING AFTER 2ND DOSE OF DILAUDID, NEW IV PLACED. PT FINALLY FELL ASLEEP AROUND 0420. MAY NEED SLEEPING MEDICATION FOR TONIGHT. Q1H FIRE SAFETY CHECKS COMPLETED WITH NO IGNITION SOURCES FOUND
[2023-03-24 05:10] VITALS: BP 107/64
[2023-03-24 05:42] LABS: BASOPHILS ABSOLUTE AUTO 0.01 K/mm3 (0.00-0.23); BASOPHILS PERCENT AUTO 0 % (0-2); EOSINOPHILS PERCENT AUTO 1 % (0-6); Hematocrit 32.6 % (37.0-53.0); IMMATURE GRAN ABSOLUTE AUTO 0.02 K/mm3 (0.00-0.10); IMMATURE GRAN PERCENT AUTO 0 % (0-1); LYMPHOCYTES PERCENT AUTO 15 % (21-46); MONOCYTES ABSOLUTE AUTO 0.58 K/mm3 (0.16-1.47); MONOCYTES PERCENT AUTO 7 % (4-13); Mean Corpuscular HGB 29.4 pg (26.0-34.0); Mean Corpuscular HGB Conc 30.7 g/dL (31.5-36.5); Mean Corpuscular Volume 96 fL (80-100); Mean Platelet Volume 10.1 fL (9.1-12.4); NEUTROPHILS ABSOLUTE AUTO 6.78 K/mm3 (1.96-9.15); NEUTROPHILS PERCENT AUTO 77 % (41-73); Platelet Count 231 K/mm3 (150-400); RDW Coefficient Variation 14.7 % (11.7-14.2); RDW Standard Deviation 52.1 fL (35.1-46.3); White Blood Cell Count 8.79 K/mm3 (4.00-11.30)
[2023-03-24 07:02] LABS: Albumin, Blood 2.4 g/dL (3.4-5.0); Albumin/Globulin Ratio 0.5 (0.8-1.8); Bilirubin, Total 0.3 mg/dL (0.1-1.0); Bun/Creatinine Ratio 29.1 (12.0-20.0); Calcium, Blood 8.4 mg/dL (8.5-10.1); Creatinine, Blood 0.72 mg/dL (0.60-1.20); Globulin, Blood 4.4 g/dL (2.2-4.0); Potassium, Blood 4.4 mmol/L (3.5-5.5); Total Protein, Blood 6.8 g/dL (6.4-8.2)
[2023-03-24 07:27] VITALS: BP 107/67
--- NOTE | 2023-03-24 12:18 | NUR ---
IGNITION RISK EDUCATION AND ASSESSMENT COMPLETED.
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
[2023-03-24 20:09] VITALS: BP 117/83
--- NOTE | 2023-03-25 04:44 | NUR ---
FIRE SAFETY MAINTAINED T/O SHIFT, IGNITION SOURCE EDUCATION PROVIDED AND FIRE RISK ASSESSED.
--- NOTE | 2023-03-25 04:46 | NUR ---
SHIFT SUMMARY; WAS PRESENT AT BEDSIDE AT THE BEGINNING OF SHIFT AND STATES THAT SHE DOES NOT WANT THE PT TO RECIEVE INSULIN ANYMORE, PTS STATES "WHATS THE DIFFERENCE IN STOPPING ALL TREATMENT TONIGHT HERE VERSUS WHEN I TAKE HIM HOME TOMORROW AND HE IS NO LONGER GETTING INSULIN." I TOOK THE PTS BLOOD SUGAR LAST NIGHT AND IT WAS 109, THEREFORE COVERAGE WAS NOT INDICATED SO THE PT DID NOT RECIEVE ANY INSULIN. UP UNTIL 0230 THE PT WAS AWAKE AND WAS ATTEMPTING OOB MULTIPLE TIMES. THE PT IS AXO X2 THIS EVENING AND CONFUSED. THE PT ENDORSES SOME R SIDED HIP/LEG PAIN. THE PT WAS MEDICATED FOR PAIN WITH MILD RELIEF. THE PT DENIES ANY CHEST PAIN/PRESSURE SOB OR N/V THIS SHIFT. CURRENTLY THE PT IS SLEEPING IN BED WITH THE BED IN THE LOWEST POSITION AND THE CALL LIGHT AT BEDSIDE.
[2023-03-25 08:09] LABS: Source, Urine Foley catheter
[2023-03-25 08:17] LABS: Appearance, Urine Clear (Clear); Bilirubin, Urine Neg (Neg); Blood, Urine Neg (Neg); Color, Urine Yellow (P-Yellow); Glucose Qualitative, Urine Neg (Neg); Ketones, Urine Neg (Neg); Leukocyte Esterase, Urine Neg (Neg); Nitrite, Urine Neg (Neg); Protein, Urine Neg (Neg); Specific Gravity, Urine 1.015 (1.003-1.022); Urobilinogen, Urine NORM (Normal)
[2023-03-25] MEDS ORDERED: LEVE500 PO (10:22)
--- NOTE | 2023-03-25 10:50 | NUR ---
DISCHARGE NOTE PT DISCHARGED TO HOME WITH HOSPICE. TRANSPORTED BY [facility] VIA WHEELCHAIR. PAPERWORK PROVIDED TO THE PT. IV REMOVED.
[2023-03-26] MEDS ORDERED: Bactrim Ds Tab1 EACH PO (13:47)
== END 2023-03-25 10:49 | disposition home or self-care (01) | DRG 208 ==
LOC: ER 07:56 → MEDS 13:38 → PCU 13:38 → ICUE 13:38 → PCU 03-22 11:01 → MEDS 03-23 14:48 → ENPENDDIS 03-25 09:03 → MEDS 03-25 10:49
PROVIDERS: Family Medicine; Internal Medicine; ADMIT Family Medicine
PROC: 0BH17EZ Insertion of Endotracheal Airway into Trachea, Via Natural or Artificial Opening (ICD-10-PCS; principal; 2023-03-21)
PROC: 5A1935Z Respiratory Ventilation, Less than 24 Consecutive Hours (ICD-10-PCS; 2023-03-21)
PROC: 5A09357 Assistance with Respiratory Ventilation, Less than 24 Consecutive Hours, Continuous Positive Airway Pressure (ICD-10-PCS; 2023-03-21)
PROC: 0T9B70Z Drainage of Bladder with Drainage Device, Via Natural or Artificial Opening (ICD-10-PCS; 2023-03-21)
DX: J96.01 Acute respiratory failure with hypoxia (principal); J69.0 Pneumonitis due to inhalation of food and vomit; I50.22 Chronic systolic (congestive) heart failure; G93.1 Anoxic brain damage, not elsewhere classified; J96.02 Acute respiratory failure with hypercapnia; E10.649 Type 1 diabetes mellitus with hypoglycemia without coma; I11.0 Hypertensive heart disease with heart failure; Z51.5 Encounter for palliative care; Z66 Do not resuscitate; E10.621 Type 1 diabetes mellitus with foot ulcer; L97.529 Non-pressure chronic ulcer of other part of left foot with unspecified severity; L97.519 Non-pressure chronic ulcer of other part of right foot with unspecified severity; E78.5 Hyperlipidemia, unspecified; I25.5 Ischemic cardiomyopathy; I25.10 Atherosclerotic heart disease of native coronary artery without angina pectoris; W18.39XA Other fall on same level, initial encounter; Z91.018 Allergy to other foods; Z88.8 Allergy status to other drugs, medicaments and biological substances; Z91.048 Other nonmedicinal substance allergy status; Z79.4 Long term (current) use of insulin; Z79.82 Long term (current) use of aspirin; Z79.899 Other long term (current) drug therapy; I25.2 Old myocardial infarction; Z86.73 Personal history of transient ischemic attack (TIA), and cerebral infarction without residual deficits; Z98.890 Other specified postprocedural states; Z89.422 Acquired absence of other left toe(s)
CPT/HCPCS: 31500; 36415; 51702; 51798; 71045; 73502; 80053; 81003; 82803; 82947; 84145; 85025; 94002; 94640; 94660; 94664; 94760; 94762; 96374-59; 96375-59; 99285-25; A9270; J0295; J0330; J1170; J1630; J1650; J1815; J1940; J2060; J2270; J2405; J2704; J2765; J3010; J7050

== ENCOUNTER 2023-03-27 21:20 | Emergency (ER) | payer OTHER ==
[~2023-03-27] VITALS: Ht 193 cm; Wt 89.8 kg
[~2023-03-27 21:20] MED LIST changes: +Bactrim Ds Tab1 EACH PO; +ENTRESTO 24 MG1 EAC2 PO; +Keppra PO; +LEVE500 PO; +RANEXA1000 M4 PO
[2023-03-27 23:37] LABS: BASOPHILS PERCENT AUTO 0 % (0-2); EOSINOPHILS ABSOLUTE AUTO 0.03 K/mm3 (0.00-0.68); EOSINOPHILS PERCENT AUTO 1 % (0-6); Hematocrit 32.4 % (37.0-53.0); Hemoglobin 10.1 g/dL (13.5-17.5); IMMATURE GRAN ABSOLUTE AUTO 0.02 K/mm3 (0.00-0.10); IMMATURE GRAN PERCENT AUTO 0 % (0-1); LYMPHOCYTES PERCENT AUTO 10 % (21-46); MONOCYTES ABSOLUTE AUTO 0.33 K/mm3 (0.16-1.47); MONOCYTES PERCENT AUTO 7 % (4-13); Mean Corpuscular HGB 29.8 pg (26.0-34.0); Mean Corpuscular HGB Conc 31.2 g/dL (31.5-36.5); Mean Corpuscular Volume 96 fL (80-100); Mean Platelet Volume 10.5 fL (9.1-12.4); NEUTROPHILS ABSOLUTE AUTO 4.22 K/mm3 (1.96-9.15); NEUTROPHILS PERCENT AUTO 83 % (41-73); Platelet Count 185 K/mm3 (150-400); RDW Coefficient Variation 14.1 % (11.7-14.2); RDW Standard Deviation 50.1 fL (35.1-46.3); Red Blood Cell Count 3.39 M/mm3 (4.30-5.90)
[2023-03-28 00:02] LABS: Albumin/Globulin Ratio 0.6 (0.8-1.8); Bilirubin, Total 0.6 mg/dL (0.1-1.0); Bun/Creatinine Ratio 22.1 (12.0-20.0); Calcium, Blood 8.9 mg/dL (8.5-10.1); Creatinine, Blood 0.68 mg/dL (0.60-1.20); Globulin, Blood 4.9 g/dL (2.2-4.0); Potassium, Blood 4.6 mmol/L (3.5-5.5); Total Protein, Blood 7.9 g/dL (6.4-8.2)
[2023-03-28 00:40] LABS: Source, Urine Foley catheter
[2023-03-28 00:43] LABS: Bilirubin, Urine Neg (Neg); Blood, Urine 4+ (Neg); Glucose Qualitative, Urine 4+ (Neg); Ketones, Urine 4+ (Neg); Leukocyte Esterase, Urine Neg (Neg); Nitrite, Urine Neg (Neg); Protein, Urine 2+ (Neg); Specific Gravity, Urine 1.015 (1.003-1.022); Urobilinogen, Urine NORM (Normal)
[2023-03-28 00:54] LABS: Appearance, Urine Clear (Clear); Color, Urine Yellow (P-Yellow)
[2023-03-28 00:55] LABS: Bacteria Not Seen /hpf; Red Blood Cells, Urine TNTC /hpf (0-2); Squamous Epithelial Cells Not Seen /hpf (Few); White Blood Cells, Urine 0-2 /hpf (0-5)
[2023-03-28 05:33] LABS: Glucose, Blood 269 mg/dL (70-99)
[2023-03-28 06:01] VITALS: BP 110/68
== END 2023-03-28 14:02 | disposition home or self-care (01) ==
LOC: ER 21:20
PROVIDERS: Emergency Medicine
DX: E11.65 Type 2 diabetes mellitus with hyperglycemia (principal); S50.312A Abrasion of left elbow, initial encounter; W50.4XXA Accidental scratch by another person, initial encounter; Z86.73 Personal history of transient ischemic attack (TIA), and cerebral infarction without residual deficits; I10 Essential (primary) hypertension; E78.5 Hyperlipidemia, unspecified; I25.2 Old myocardial infarction; Z91.048 Other nonmedicinal substance allergy status; Z79.4 Long term (current) use of insulin
CPT/HCPCS: 80053; 81001; 82947; 83880; 84484; 85025; 93005; 93010; 99283-25; J1815

== ENCOUNTER 2023-04-10 11:55 | Emergency (ER) | payer OTHER ==
[~2023-04-10] VITALS: Ht 182.9 cm; Wt 61.2 kg
[2023-04-10] MEDS ORDERED: BASAGLAR K100 UNIT/1 SC (13:53)
[2023-04-10 14:10] LABS: Calcium, Ionized (POC) 1.32 mmol/L (1.10-1.46); Chloride (POC) 101 mmol/L (98-108); Creatinine (POC) 1.4 mg/dL (0.8-1.3); Glucose (ISTAT POC) >700 mg/dL (70-99); Hemoglobin (POC) 13.3 g/dL (13.5-17.5); Potassium (POC) 6.3 mmol/L (3.5-5.5); Sodium (POC) 126 mmol/L (135-148); Total CO2 (POC) 14 mmol/L (21-32)
[2023-04-10 16:00] VITALS: BP 106/62
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
== END 2023-04-10 16:21 | disposition home or self-care (01) ==
LOC: ER 11:55
PROVIDERS: Physician Assistant
DX: E11.65 Type 2 diabetes mellitus with hyperglycemia (principal); I25.2 Old myocardial infarction; I10 Essential (primary) hypertension; E11.40 Type 2 diabetes mellitus with diabetic neuropathy, unspecified; E78.5 Hyperlipidemia, unspecified; G40.909 Epilepsy, unspecified, not intractable, without status epilepticus; Z86.73 Personal history of transient ischemic attack (TIA), and cerebral infarction without residual deficits; Z91.048 Other nonmedicinal substance allergy status; Z79.82 Long term (current) use of aspirin; Z79.4 Long term (current) use of insulin; Z79.899 Other long term (current) drug therapy
CPT/HCPCS: 80047; 85014; 99284